=== PATIENT | male | born 1980 | race Caucasian/White ===

== ENCOUNTER 2020-10-22 20:59 | Emergency (ER) | payer OTHER ==
[~2020-10-22] VITALS: Ht 167.6 cm; Wt 81.6 kg
[2020-10-22 21:02] VITALS: BP_SYST 108
--- NOTE | 2020-10-22 21:23 | NUR ---
Dr Farris evaluating patient in the tent
[2020-10-22] MEDS ORDERED: CASIRIVIMAB 600 MG, IMDEVIMAB 600 MG in NS 250 ML IV ONE (21:30)
[2020-10-22] MEDS ORDERED: ALBU8.5H8 INH (22:14)
[2020-10-22] MEDS ORDERED: PRED20TA PO (22:14)
--- NOTE | 2020-10-22 22:20 | NUR ---
Placed in room 08 . Placed on secured entrance monitor, blood pressure machine and pulse oximeter. To gown for exam. Side rails up.
--- NOTE | 2020-10-22 22:22 | NUR ---
Pt brought by , A&Ox4, pt presents to ER with cough, congestion and SOB x 2 days, pt O2 96% at this time, pt states he has Hx of diabetes, BS 256 at this time, respirations even and unlabored, cap refill <3, VSS, will cont to monitor
--- NOTE | 2020-10-22 22:30 | NUR ---
Dr Farris calling pharmacist, pharmacist notified patient needs antibodies medication as ordered and medication not available in the ER, pharmaciest on the way to [place] at this time.
--- NOTE | 2020-10-22 22:55 | NUR ---
Pharmacist on site to prepare antibodies medication, notified, consent signed by patient.
--- NOTE | 2020-10-22 23:03 | NUR ---
Pt A&Ox4, VSS, respirations even and unlabored, will cont to monitor.
--- NOTE | 2020-10-22 23:15 | NUR ---
Report given to June RN
--- NOTE | 2020-10-23 00:05 | NUR ---
Patient resting quietly. No acute distress noted. Vital signs within normal range.
--- NOTE | 2020-10-23 00:30 | NUR ---
Started IV medication as order by Dr. Farris.
--- NOTE | 2020-10-23 00:44 | NUR ---
Re-check with patient, no acute distress , or allergy reaction symptoms.
--- NOTE | 2020-10-23 01:23 | NUR ---
Re-check patient, vss, no acute distress.
--- NOTE | 2020-10-23 01:35 | NUR ---
Finished IV medication, no S/S of allergy reactions.
--- NOTE | 2020-10-23 02:34 | NUR ---
Patient resting quietly. No acute distress noted. Vital signs within normal range.
[2020-10-23 02:50] VITALS: BP_SYST 103
--- NOTE | 2020-10-23 02:50 | NUR ---
Patient given written and verbal discharge instructions and verbalizes understanding. ER MD discussed with patient the results and treatment provided. Patient in stable condition. ID arm band removed. IV catheter removed intact and dressing applied, no active bleeding. Rx of Proair HFA and Prednisone given. Patient educated on pain management and to follow up with PMD. Pain Scale 0/10. Opportunity for questions provided and answered. Medication side effect fact sheet provided.
== END 2020-10-23 02:50 | disposition home or self-care (01) ==
LOC: SED 20:59
DX: U07.1 COVID-19 (principal); E11.9 Type 2 diabetes mellitus without complications
CPT/HCPCS: 36415; 71045; 87426; 99285; J7050; M0243; Q0243